=== PATIENT | male | born 1975 | race Caucasian/White ===

== ENCOUNTER 2016-07-18 19:14 | Emergency (ER) | payer SELFPAY ==
[~2016-07-18] VITALS: Ht 188 cm; Wt 129.3 kg
--- NOTE | 2016-07-18 19:38 | NUR ---
BIBA TO ER BED 8
[2016-07-18 19:41] VITALS: BP 194/113
--- NOTE | 2016-07-18 19:41 | NUR ---
40 Y/O M BIBA W/C/O R KNEE SWEELLING AND SHARP/ BURNING PAIN X 173 TODAY. PT DENIES ANY TRAUMA. MD HERMAN HNT, TAKES LASIX, POTASSIUM AND COREG..
[2016-07-18] MEDS ORDERED: KETOROLAC 60 MG/2 ML VIAL IM ONE (20:10)
[2016-07-18 20:27] LABS: BASOPHILS # (AUTO) 0.3 K/uL (0.00-0.22); BASOPHILS % (AUTO) 2.5 % (0.0-2.0); EOSINOPHILS # (AUTO) 0.2 K/uL (0-0.4); EOSINOPHILS % (AUTO) 2.1 % (0.0-4.0); HEMATOCRIT 43.6 % (36-52); HEMOGLOBIN 14.2 g/dL (12.0-18.0); LYMPHOCYTES # (AUTO) 1.1 K/uL (2.0-11.5); LYMPHOCYTES % (AUTO) 9.5 % (20.5-51.1); MEAN CORPUSCULAR HEMOGLOBIN 27 pg (27-31); MEAN CORPUSCULAR HGB CONC 33 g/dL (33-37); MEAN CORPUSCULAR VOLUME 84 fL (80-94); MONOCYTES # (AUTO) 1.1 K/uL (0.8-1.0); MONOCYTES % (AUTO) 9.6 % (1.7-9.3); NEUTROPHILS # (AUTO) 8.6 K/uL (1.8-7.7); NEUTROPHILS % (AUTO) 76.3 % (42.2-75.2); PLATELET COUNT (AUTO) 245 K/uL (140-450); RED BLOOD CELL COUNT(AUTO) 5.22 MIL/uL (4.20-6.10); WHITE BLOOD COUNT (AUTO) 11.3 K/uL (4.8-10.8)
[2016-07-18 20:40] LABS: ANION GAP 13.7 (8-16); CALCIUM 8.9 mg/dL (8.5-10.1); CARBON DIOXIDE 27.6 mmol/L (21-32); CREATININE 1.7 mg/dL (0.6-1.3); POTASSIUM 4.3 mmol/L (3.5-5.1)
[2016-07-18] MEDS ORDERED: CLINDAMYCIN 600 MG/4 ML VIAL IM ONE (20:50)
[2016-07-18 21:18] VITALS: BP 147/89
--- NOTE | 2016-07-18 21:18 | NUR ---
Patient discharged with v/s stable. Written and verbal after care instructions given and explained. Patient alert, oriented and verbalized understanding of instructions. Ambulatory with steady gait. All questions addressed prior to discharge. ID band removed. Patient advised to follow up with PMD THIS WK OR RETURN TO ER IF CONDITION WORSENS. Rx of MOTRIN, CLINDAMYCIN AND TRAMADOL given. Patient educated on indication of medication including possible reaction and side effects. Opportunity to ask questions provided and answered.
== END 2016-07-18 21:18 | disposition home or self-care (01) ==
LOC: MED 19:14
DX: S76.111A Strain of right quadriceps muscle, fascia and tendon, initial encounter (principal); I10 Essential (primary) hypertension; X58.XXXA Exposure to other specified factors, initial encounter; Y93.89 Activity, other specified; Y92.89 Other specified places as the place of occurrence of the external cause; Y99.8 Other external cause status
CPT/HCPCS: 36415; 73562; 80048; 85025; 96372; 99285; J1885; J3490